=== PATIENT | male | born 1950 | race Hispanic/Latino ===

== ENCOUNTER 2017-02-20 08:35 | Outpatient (CLI) | payer MEDICARE ==
--- NOTE | 2017-02-20 13:19 | XRay Report ---
RIGHT ELBOW THREE VIEWS: 02/20/17 08:35:00 CLINICAL: Right elbow pain. FINDINGS: Two heterotopic calcifications in the location of the ulnar collateral ligament. A small olecranon spur with a tiny calcification in the triceps tendon. Mild soft tissue swelling at the olecranon. No joint effusion. No fracture or dislocation. IMPRESSION: Heterotopic calcifications of the ulnar collateral ligament suggest an injury or tear to the ligament of uncertain age. Mild triceps enthesopathy.
== END 2017-02-20 08:36 | disposition home or self-care (01) ==
LOC: SPVIMAG 08:35
PROVIDERS: ATTEND Orthopaedic Surgery
DX: M25.821 Other specified joint disorders, right elbow (principal); M77.8 Other enthesopathies, not elsewhere classified; M25.421 Effusion, right elbow

== ENCOUNTER 2017-03-06 09:46 | Outpatient (CLI) | payer MEDICARE ==
--- NOTE | 2017-03-06 11:08 | XRay Report ---
Cervical spine: Radiculopathy. AP and lateral projections demonstrates moderate narrowing of the C3-4 interspace and virtual absence of the C5-6 interspace. Mild anterior and posterior spurs are identified at the inferior margin of C3 as well as at the posterior margins of C5-6. Vertebral height and alignment are well-maintained. The bones do appear slightly demineralized. No prevertebral swelling. 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 Thoracic spine: Back pain. There is diffuse mild anterior spondylosis with anterior bridging between the levels of the T10 and L1. The vertebral height, alignment, and interspaces appear generally preserved. The bones are slightly demineralized. No paraspinous soft tissue widening noted. Impression: Diffuse spondylosis. No acute finding.
== END 2017-03-06 09:47 | disposition home or self-care (01) ==
LOC: SPVIMAG 09:46
PROVIDERS: ATTEND Physical Medicine & Rehabilitation
DX: M47.22 Other spondylosis with radiculopathy, cervical region (principal); M47.894 Other spondylosis, thoracic region
CPT/HCPCS: 72050; 72070